=== PATIENT | female | born 1985 | race Hispanic/Latino ===

== ENCOUNTER 2024-09-29 21:29 | Emergency (ER) | payer OTHER ==
[2024-09-29] MEDS ORDERED: LORazepam 2 MG/ML VIAL ONE (21:46)
[2024-09-29] MEDS ORDERED: NA CHLORIDE 0.9% 1,000 ML ONE (21:46)
[2024-09-29 22:13] LABS: Absolute Basophils 0.1 K/uL (0-0.5); Absolute Lymphocytes (CBC) 2.2 K/uL (0.7-4.9); Absolute Monocytes 0.4 K/uL (0.1-1.3); Absolute Neutrophil 2.9 K/uL (1.8-8.0); Basophils % 1.2 % (0-1.3); Eosinophils % 0.6 % (0-4.4); Hematocrit 38.4 % (36.0-45.0); Hemoglobin 13.3 g/dL (12.0-15.0); Lymphocytes % 39.3 % (15.3-44.8); MCH 34.4 pg (27.0-35.0); MCHC 34.6 g/dL (32.0-36.0); MCV 99.3 fL (80-100); MPV 6.4 fL (7.6-11.3); Monocytes % 7.4 % (3.3-12.3); Neutrophils % 51.5 % (41.7-73.7); Nucleated Red Blood Cells % 0.1 % (0-0); Platelets 405 thou/uL (152-406); RBC Red Blood Cell Count 3.87 M/uL (3.86-4.86); Red Cell Distribution Width 13.5 % (12.1-15.2)
[2024-09-29 22:33] LABS: Anion Gap 10.3 mEq/L (5.0-15.0); BUN Blood Urea Nitrogen 10 mg/dL (7-18); Bicarbonate 21 mEq/L (21-32); Glomerular Filtration Rate 109 ml/min (=/>90); Glucose Level 78 mg/dL (74-106); Sodium Level 139 mEq/L (136-145)
--- NOTE | 2024-09-29 22:34 | RAD REPORT ---
EXAMINATION: CT HEAD WITHOUT CONTRAST CLINICAL INDICATION: Female, 39 years old.generalized weakness TECHNIQUE: Axial CT images from the skull base to the vertex without intravenous contrast. Coronal an d sagittal reformatted images were created from the data set. One or more of the following dose reduction techniques were used: Automated exposure control, adjustment of the mA and/or kV according to patient size, and/or iterative reconstruction. Unless otherwise specified, incidental findings do not require dedicated imaging follow-up. [id number]. COMPARISON: No prior exam. FINDINGS: INTRACRANIAL: No acute intracranial hemorrhage. No hydrocephalus. No mass effect or midline shift. No significant white matter disease. VASCULATURE: No visualized abnormalities in the arteries or dural venous sinuses. SCALP/SKULL: No significant soft tissue or osseous abnormalities. SINUSES: The visualized paranasal sinuses and mastoid air cells are predominantly clear. IMPRESSION: No acute intracranial abnormality.
[2024-09-29 22:36] LABS: Potassium 4.3 mEq/L (3.5-5.1); Troponin High Sensitivity < 3.0 pg/mL (<58.9)
--- NOTE | 2024-09-30 01:32 | EDPHYS ---
Physician Documentation [facility] Name: Gracie Curtis Age: 39 yrs Sex: Female : 1985 Arrival Date: 09/29/2024 Time: 21:29 Bed 7 Private MD: ED Physician Velasquez Soto HPI: 09/29 21:32 This 39 yrs old Female presents to ER via Unassigned with complaints of sp4 general complaint . 23:22 39-year-old female presents with acute moderate to severe anxiety associated with sp4 bilateral arm and leg numbness associated with generalized weakness. Patient arrived with EMS stating that she suddenly developed generalized weakness associated with stiffness of her arms and legs , with bilateral numbness, associated with overall anxiety that was unprovoked. . FAMILY DAY CARE PROVIDER: 21:40 LMP 09/27/2023, unknown ha1 Historical: - Allergies: 21:40 PENICILLINS; ha1 - Home Meds: 21:40 None [Active]; ha1 - PMHx: 21:40 Anxiety; ha1 - PSHx: 21:40 None; ha1 - Immunization history:: Adult Immunizations up to date. - Infectious Disease History:: Denies. - Social history:: Smoking status: Patient denies any tobacco usage or history of. Patient uses alcohol. - Family history:: not pertinent. ROS: 23:22 Constitutional: Negative for fever, chills, and weight loss, positive for generalized sp4 stiffness numbness and weakness 23:22 All other systems are negative, Exam: 23:22 Constitutional: This is a well developed, well nourished patient who is awake, alert, sp4 and in no acute distress. Head/Face: Normocephalic, atraumatic. Eyes: Pupils equal round and reactive to light, extra-ocular motions intact. Lids and lashes normal. Conjunctiva and sclera are not injected. Cornea within normal limits. Periorbital areas with no swelling, redness, or edema. ENT: Nares patent. No nasal discharge, no septal abnormalities noted. Tympanic membranes are normal and external auditory canals are clear. Oropharynx with no redness, swelling, or masses, exudates, or evidence of obstruction, uvula midline. Mucous membranes moist. Neck: Trachea midline, no thyromegaly or masses palpated, and no cervical lymphadenopathy. Supple, full range of motion without nuchal rigidity, or vertebral point tenderness. Chest/axilla: Normal chest wall appearance and motion. Nontender with no deformity. No lesions are appreciated. Cardiovascular: Regular rate and rhythm with a normal S1 and S2. No gallops, murmurs, or rubs. Normal PMI, no JVD. No pulse deficits. Respiratory: Lungs have equal breath sounds bilaterally, clear to auscultation and percussion. No rales, rhonchi or wheezes noted. No increased work of breathing, no retractions or nasal flaring. Abdomen/GI: Soft, with normal bowel sounds. No distension or tympany. No guarding or rebound. No evidence of tenderness throughout. Back: No spinal tenderness. No costovertebral tenderness. Skin: Warm, dry with normal turgor. Normal color with no rashes, no lesions, and no evidence of cellulitis. MS/ Extremity: Pulses equal, no cyanosis. Neurovascular intact. Full, normal range of motion. Neuro: Awake and alert, GCS 15, oriented to person, place, time, and situation. Cranial nerves II-XII grossly intact. Motor strength 5/5 in all extremities. Sensory grossly intact. Psych: Awake, alert, with orientation to person, place and time. Behavior, mood, and affect are within normal limits 23:47 ECG was reviewed by the Attending Physician. EKG at 2150 normal sinus rhythm sp4 prolonged QT rate 80. Vital Signs: 21:36 BP 135 / 97; Pulse 92; Resp 17; Temp 97.8; Pulse Ox 99% ; Weight 59.87 kg; Height 5 ft. ha1 2 in. ; Pain 0/10; 22:31 BP 119 / 84; Pulse 84; Resp 17; Temp 97.8; Pulse Ox 100% ; Pain 0/10; ha1 23:18 BP 91 / 63; Pulse 79; Resp 15; Temp 97.8; Pulse Ox 96% ; Pain 0/10; bm8 09/30 01:06 BP 89 / 61; Pulse 95; Resp 22; Temp 97.8; Pulse Ox 97% ; Pain 0/10; bm8 01:43 BP 95 / 61; Pulse 90; Resp 17; Temp 97.8; Pulse Ox 100% ; Pain 0/10; bm8 09/29 21:36 Body Mass Index 24.14 (59.87 kg, 157.48 cm) ha1 09/29 21:36 Pain Scale: Adult ha1 22:31 Pain Scale: Adult ha1 23:18 Pain Scale: Adult bm8 09/30 01:06 Pain Scale: Adult bm8 01:43 Pain Scale: Adult bm8 NIH Stroke Scale Scores: 09/29 23:51 NIHSS Score: 0 sp4 [place] Coma Score: 22:31 Eye Response: spontaneous(4). Motor Response: obeys commands(6). Verbal Response: ha1 oriented(5). Total: 15. 23:18 Eye Response: spontaneous(4). Motor Response: obeys commands(6). Verbal Response: bm8 oriented(5). Total: 15. 23:22 Eye Response: spontaneous(4). Motor Response: obeys commands(6). Verbal Response: sp4 oriented(5). Total: 15. 09/30 01:06 Eye Response: to voice(3). Motor Response: obeys commands(6). Verbal Response: bm8 oriented(5). Total: 14. 01:43 Eye Response: spontaneous(4). Motor Response: obeys commands(6). Verbal Response: bm8 oriented(5). Total: 15. MDM: 09/29 21:43 Medical Screening Exam initiated sp4 23:12 ED course: EXAMINATION: CT HEAD WITHOUT CONTRAST CLINICAL INDICATION: Female, 39 years sp4 old.generalized weakness TECHNIQUE: Axial CT images from the skull base to the vertex without intravenous contrast. Coronal and sagittal reformatted images were created from the data set. One or more of the following dose reduction techniques were used: Automated exposure control, adjustment of the mA and/or kV according to patient size, and/or iterative reconstruction. Unless otherwise specified, incidental findings do not require dedicated imaging follow-up. [id number]. COMPARISON: No prior exam. FINDINGS: INTRACRANIAL: No acute intracranial hemorrhage. No hydrocephalus. No mass effect or midline shift. No significant white matter disease. VASCULATURE: No visualized abnormalities in the arteries or dural venous sinuses. SCALP/SKULL: No significant soft tissue or osseous abnormalities. SINUSES: The visualized paranasal sinuses and mastoid air cells are predominantly clear. IMPRESSION: No acute intracranial abnormality. Signed By: Sukhi Lima MD . 09/30 02:10 Differential Diagnosis altered mental status, sepsis, flu, TIA. Data reviewed: vital sp4 signs, nurses notes, EMS record, old medical records, lab test result(s), EKG, radiologic studies, CT scan. Consideration of Admission/Observation Escalation of care including admission/observation considered. ED course: After lorazepam patient's symptoms completely resolved. Patient able to get up and ambulate. Patient stable for discharge home with as needed Valium for anxiety attacks. 09/29 21:44 Order name: Basic Metabolic Panel; Complete Time: 23:13 sp4 09/29 21:44 Order name: CBC with Diff; Complete Time: 23:13 sp4 09/29 21:44 Order name: Troponin HS; Complete Time: 23:13 sp4 09/29 21:44 Order name: CT Head Brain wo Cont; Complete Time: 23:13 sp4 09/29 21:44 Order name: EKG; Complete Time: 21:44 sp4 09/29 21:44 Order name: Cardiac monitoring; Complete Time: 21:45 sp4 09/29 21:44 Order name: EKG - Nurse/Tech; Complete Time: 21:45 sp4 09/29 21:44 Order name: IV Saline Lock; Complete Time: 21:45 sp4 09/29 21:44 Order name: Labs collected and sent; Complete Time: 21:45 sp4 EC/21 21:50 Rate is 80 beats/min. Rhythm is regular, Normal Sinus Rhythm. QRS [place] is Normal. [place] sp4 interval is normal. QRS interval is normal. QT interval is prolonged. No Q waves. T waves are Normal. No ST changes noted. Clinical impression: No evidence of ischemia. Interpreted by me. Reviewed by me. Administered Medications: 21:56 Drug: Ativan IVP 2 mg IVP once Route: IVP; Site: left forearm; ha1 09/30 01:07 Follow up: Response: No adverse reaction bm8 09/29 21:57 Drug: NS 0.9% IV 1000 ml IV at 1 bolus Per protocol; to be given as a bolus over 60 ha1 minutes Route: IV; Rate: 1 bolus; Site: left forearm; 09/30 01:07 Follow up: Response: No adverse reaction; IV Status: Completed infusion; IV Intake: bm8 1000ml Disposition Summary: 09/30/24 01:31 Discharge Ordered Notes: Location: Home sp4 Problem: new sp4 Symptoms: have improved sp4 Condition: Stable sp4 Diagnosis - Anxiety disorder, unspecified sp4 - Acute Panic Attack sp4 Followup: sp4 - With: Private Physician - When: 7 - 10 days - Reason: Recheck today's complaints Discharge Instructions: - Discharge Summary Sheet sp4 - Panic Attack sp4 Forms: - Patient Portal Instructions sp4 Prescriptions: - Valium 5 mg Oral tablet - take 1 tablet ORAL route every 8 hours As needed PRN anxiety; 20 tablet; sp4 Refills: 0, Product Selection Permitted NIH Stroke Scale - NIH Stroke Score Date: 09/29/2024 Time: 23:51 Total Score = 0 10. Dysarthria (speech clarity - read or repeat words) - 0(Normal) 11. Extinction and Inattention (visual/tactile/auditory/spatial/personal) - 0(No abnormality) 1a. Level of Consciousness (LOC) - 0(Alert) 1b. Level of Consciousness (LOC) (Month \T\ Age) - 0(Both) 1c. LOC Commands (Open \T\ Closes Eyes/Woodworking Machinist) - 0(Both) 2. Best Gaze (Lateral Gaze Paresis) - 0(Normal) 3. Visual Field Loss - 0(No visual loss) 4. Facial Palsy - 0(Normal) 5a. Left Arm: Motor (10-second hold) - 0(No drift) 5b. Right Arm: Motor (10-second hold) - 0(No drift) 6a. Left Leg: Motor (5-second hold - always test supine) - 0(No drift) 6b. Right Leg: Motor (5-second hold - always test supine) - 0(No drift) 7. Limb Ataxia (finger/nose \T\ heel/gibson - test with eyes open) - 0(Absent) 8. Sensory Loss (pinprick arms/legs/face) - 0(Normal) 9. Best Language: Aphasia (description/naming/reading) - 0(No aphasia) Initials: sp4 Signatures: Dispatcher [employer] EDMS Babs Hernandez RN RN ha1 Velasquez Soto MD MD sp4 Caio Brink RN bm8 Corrections: (The following items were deleted from the chart) 01/21 21:45 21:45 Head Brain Wo Cont+CT.RAD.BRZ ordered. EDMS EDMS :45 TEST, SERUM+SC.LAB.BRZ ordered. EDMS EDMS
--- NOTE | 2024-09-30 01:32 | ER ---
Nurse's Notes [facility] Name: Gracie Curtis Age: 39 yrs Sex: Female : 1985 Arrival Date: 09/29/2024 Time: 21:29 Bed 7 Private MD: Diagnosis: Anxiety disorder, unspecified;Acute Panic Attack Presentation: 09/29 21:36 Chief complaint: Patient states: I go stiff often sometimes during anxiety attacks, but ha1 I am not feeling anxious. then I went Numb from the waist down. Im not feeling that right now though. Coronavirus screen: At this time, the client does not indicate any symptoms associated with coronavirus-19. Ebola Screen: Patient negative for fever greater than or equal to 101.5 degrees Fahrenheit, and additional compatible Ebola Virus Disease symptoms Patient denies exposure to infectious person. Patient denies travel to an Ebola-affected area in the 21 days before illness onset. No symptoms or risks identified at this time. Initial Sepsis Screen: Does the patient meet any 2 criteria? No. Patient's initial sepsis screen is negative. Does the patient have a suspected source of infection? No. Patient's initial sepsis screen is negative. Risk Assessment: Do you want to hurt yourself or someone else? Patient reports no desire to harm self or others. Onset of symptoms was September 29, 2024 at 20:00. Care prior to arrival: Medication(s) given: zofran 4 mg, toradol 15 mg IVP IV initiated. 20 GA, in the left forearm. 21:36 Method Of Arrival: EMS: [facility] ha1 21:36 Acuity: ATILIO 3 ha1 Triage Assessment: 21:40 General: Appears in no apparent distress. comfortable, Behavior is calm, cooperative, ha1 appropriate for age, Smells of alcohol. Pain: Denies pain. EENT: No deficits noted. No signs and/or symptoms were reported regarding the EENT system. Neuro: No deficits noted. Level of Consciousness is awake, alert, obeys commands, Oriented to person, place, time, situation, Appropriate for age Manager Physical are equal bilaterally. Cardiovascular: Denies chest pain, Heart tones S1 S2 present Capillary refill < 3 seconds in bilateral fingers. Respiratory: Airway is patent Trachea midline Respiratory effort is even, unlabored, Respiratory pattern is regular, symmetrical, Breath sounds are clear bilaterally. GI: No deficits noted. No signs and/or symptoms were reported involving the gastrointestinal system. : No deficits noted. No signs and/or symptoms were reported regarding the genitourinary system. Derm: No deficits noted. No signs and/or symptoms reported regarding the dermatologic system. Musculoskeletal: Circulation, motion, and sensation intact. Capillary refill < 3 seconds, in bilateral fingers. toes. Range of motion: intact in all extremities, Reports stiff muscles from shoulders to to toes. LAMP SHADE SEWER: 21:40 LMP 09/27/2023, unknown ha1 Historical: - Allergies: 21:40 PENICILLINS; ha1 - Home Meds: 21:40 None [Active]; ha1 - PMHx: 21:40 Anxiety; ha1 - PSHx: 21:40 None; ha1 - Immunization history:: Adult Immunizations up to date. - Infectious Disease History:: Denies. - Social history:: Smoking status: Patient denies any tobacco usage or history of. Patient uses alcohol. - Family history:: not pertinent. Screenin:31 [facility] ED Fall Risk Assessment (Adult) History of falling in the last 3 months, ha1 including since admission No falls in past 3 months (0 pts) Confusion or Disorientation No (0 pts) Intoxicated or Sedated No (0 pts) Impaired Gait No (0 pts) Mobility Assist Device Used No (0 pt) Altered Elimination No (0 pt) Score/Fall Risk Level 0 - 2 = Low Risk Oriented to surroundings, Maintained a safe environment, Educated pt \T\ family on fall prevention, incl call for assistance when getting out of bed, Assessed \T\ reinforced patient's understanding of fall precautions, Hourly rounding (assess needs \T\ fall precautionary measures) done, Used ambulatory aids as needed (educated on \T\ assisted with), Used gait belt as appropriate. Abuse screen: Denies threats or abuse. Nutritional screening: No deficits noted. Tuberculosis screening: No symptoms or risk factors identified. Assessment: 22:31 Reassessment: Patient appears in no apparent distress at this time. Patient and/or ha1 family updated on plan of care and expected duration. Pain level reassessed. Patient is alert, oriented x 3, equal unlabored respirations, skin warm/dry/pink. pt is curled into position at this time resting with eyes closed breathing is even unlabored with symmetrical rise and fall of chest. easy to arouse GCS 15. denies pain. mother at bedside and now awaiting results from CT Patient denies pain at this time. Patient states feeling better. Patient states symptoms have improved. 23:18 Reassessment: Patient appears in no apparent distress at this time. No changes from bm8 previously documented assessment. Patient and/or family updated on plan of care and expected duration. Pain level reassessed. Patient is alert, oriented x 3, equal unlabored respirations, skin warm/dry/pink. 09/30 01:06 Reassessment: Patient appears in no apparent distress at this time. No changes from bm8 previously documented assessment. Patient and/or family updated on plan of care and expected duration. Pain level reassessed. Patient is alert, oriented x 3, equal unlabored respirations, skin warm/dry/pink. 01:43 Reassessment: Patient appears in no apparent distress at this time. Patient and/or 8 family updated on plan of care and expected duration. Pain level reassessed. Patient is alert, oriented x 3, equal unlabored respirations, skin warm/dry/pink. pt is aa0x3 and is ready to leave. Vital Signs: 09/29 21:36 BP 135 / 97; Pulse 92; Resp 17; Temp 97.8; Pulse Ox 99% ; Weight 59.87 kg; Height 5 ft. ha1 2 in. ; Pain 0/10; 22:31 BP 119 / 84; Pulse 84; Resp 17; Temp 97.8; Pulse Ox 100% ; Pain 0/10; ha1 23:18 BP 91 / 63; Pulse 79; Resp 15; Temp 97.8; Pulse Ox 96% ; Pain 0/10; bm8 09/30 01:06 BP 89 / 61; Pulse 95; Resp 22; Temp 97.8; Pulse Ox 97% ; Pain 0/10; 8 01:43 BP 95 / 61; Pulse 90; Resp 17; Temp 97.8; Pulse Ox 100% ; Pain 0/10; bm8 09/29 21:36 Body Mass Index 24.14 (59.87 kg, 157.48 cm) ha1 09/29 21:36 Pain Scale: Adult ha1 22:31 Pain Scale: Adult ha1 23:18 Pain Scale: Adult bm8 09/30 01:06 Pain Scale: Adult bm8 01:43 Pain Scale: Adult bm8 [place] Coma Score: 09/29 22:31 Eye Response: spontaneous(4). Motor Response: obeys commands(6). Verbal Response: ha1 oriented(5). Total: 15. 23:18 Eye Response: spontaneous(4). Motor Response: obeys commands(6). Verbal Response: bm8 oriented(5). Total: 15. 23:22 Eye Response: spontaneous(4). Motor Response: obeys commands(6). Verbal Response: sp4 oriented(5). Total: 15. 09/30 01:06 Eye Response: to voice(3). Motor Response: obeys commands(6). Verbal Response: bm8 oriented(5). Total: 14. 01:43 Eye Response: spontaneous(4). Motor Response: obeys commands(6). Verbal Response: bm8 oriented(5). Total: 15. NIH Stroke Scale Scores: 09/29 23:51 NIHSS Score: 0 sp4 ED Course: 21:32 Patient arrived in ED. ha1 21:32 Velasquez Soto MD is Attending Physician. sp4 21:36 Babs Hernandez RN is Primary Nurse. ha1 21:40 Triage completed. ha1 21:40 Arm band placed on right wrist. ha1 22:26 CT Head Brain wo Cont In Process Unspecified. EDMS 22:31 Patient has correct armband on for positive identification. Placed in gown. Bed in low ha1 position. Call light in reach. Side rails up X2. Adult w/ patient. Client placed on continuous cardiac and pulse oximetry monitoring. NIBP monitoring applied. library monitor on. Pulse ox on. NIBP on. Door closed. Noise minimized. Warm blanket given. Pillow given. Verbal reassurance given. Head of bed elevated. 22:31 No provider procedures requiring assistance completed. Initial lab(s) drawn, by jacky stringer sent to lab. EKG done, by ED staff, reviewed by Velasquez Soto MD. Maintain EMS IV. Dressing intact. Good blood return noted. Site clean \T\ dry. Gauge \T\ site: 20g LFA. Flushed with 10 mL NS. Patient maintains SpO2 saturation greater than 95% on room air. 22:37 Primary Nurse role handed off by Babs Hernandez, RN bm8 22:37 Caio Brink, RN is Primary Nurse. bm8 09/30 01:43 Provided Education on: post er care. bm8 01:43 IV discontinued, intact, bleeding controlled, No redness/swelling at site. Pressure bm8 dressing applied. Administered Medications: 09/29 21:56 Drug: Ativan IVP 2 mg IVP once Route: IVP; Site: left forearm; ha1 09/30 01:07 Follow up: Response: No adverse reaction bm8 09/29 21:57 Drug: NS 0.9% IV 1000 ml IV at 1 bolus Per protocol; to be given as a bolus over 60 ha1 minutes Route: IV; Rate: 1 bolus; Site: left forearm; 09/30 01:07 Follow up: Response: No adverse reaction; IV Status: Completed infusion; IV Intake: bm8 1000ml Medication: 09/29 22:31 VIS not applicable for this client. ha1 Intake: 09/30 01:07 IV: 1000ml; Total: 1000ml. bm8 Outcome: 01:31 Discharge ordered by MD. sp4 01:44 Discharged to home via wheelchair, bm8 01:44 Condition: stable 01:44 Discharge instructions given to patient, family, Instructed on discharge instructions, follow up and referral plans. Demonstrated understanding of instructions, follow-up care, medications, Prescriptions given X 1, 01:54 Patient left the ED. bm8 NIH Stroke Scale - NIH Stroke Score Date: 09/29/2024 Time: 23:51 Total Score = 0 10. Dysarthria (speech clarity - read or repeat words) - 0(Normal) 11. Extinction and Inattention (visual/tactile/auditory/spatial/personal) - 0(No abnormality) 1a. Level of Consciousness (LOC) - 0(Alert) 1b. Level of Consciousness (LOC) (Month \T\ Age) - 0(Both) 1c. LOC Commands (Open \T\ Closes Eyes/Medical Information Officer) - 0(Both) 2. Best Gaze (Lateral Gaze Paresis) - 0(Normal) 3. Visual Field Loss - 0(No visual loss) 4. Facial Palsy - 0(Normal) 5a. Left Arm: Motor (10-second hold) - 0(No drift) 5b. Right Arm: Motor (10-second hold) - 0(No drift) 6a. Left Leg: Motor (5-second hold - always test supine) - 0(No drift) 6b. Right Leg: Motor (5-second hold - always test supine) - 0(No drift) 7. Limb Ataxia (finger/nose \T\ heel/gibson - test with eyes open) - 0(Absent) 8. Sensory Loss (pinprick arms/legs/face) - 0(Normal) 9. Best Language: Aphasia (description/naming/reading) - 0(No aphasia) Initials: sp4 Signatures: Dispatcher [employer] EDBabs Dominguez, RN RN ha1 Velasquez Soto MD MD sp4 Caio Brink RN RN bm8
[2024-09-30 02:26] VITALS: TEMP 97.8
[2024-09-30 02:32] VITALS: BP 95/61; O2SAT 100
--- NOTE | 2024-10-01 12:58 | EKG ---
Test Date: 2024-09-29 Test Time: 21:50:40 Resaw Operator: URSULA MEASUREMENT RESULTS: Intervals: Rate: 80 NE: 132 QRSD: 88 QT: 420 QTc: 484 [place]: P: 55 NE: 132 QRS: 43 T: 32 INTERPRETIVE STATEMENTS: Normal sinus rhythm Prolonged QT Abnormal ECG No previous ECG available for comparison Electronically Signed On 10-01-24 12:58:10 EMERGENCY DEPARTMENT PHYSICIAN by Tunde Hewitt
== END 2024-09-30 01:54 | disposition home or self-care (01) ==
LOC: ER 21:29
DX: F41.0 Panic disorder [episodic paroxysmal anxiety] (principal)
CPT/HCPCS: 96361; 93005; 85025; 80048; 36415; 84484; 70450; 96374; 99285; J7030